=== PATIENT | female | born 1955 | race Caucasian/White ===

== ENCOUNTER 2019-01-27 14:31 | Emergency (ER) | payer OTHER ==
[~2019-01-27] VITALS: Ht 162.6 cm; Wt 97.5 kg
[~2019-01-27 14:31] MED LIST: ATIVAN0.5 MG PO; ATROVENT30 ML; AUGMENTIN 875-1 EACH PO; CLARITIN10 MG PO; FLOVENT DISKU250 MCG IH; IBUPROFEN 200200 M1 PO; KEFLEX500 MG PO; LISINOPRIL10 MG PO; PENICILLIN V P500 MG PO; PREDNISONE 5 MG5 M1 PO; PROVENTIL; SINGULAIR 10 MG10 M1 PO; ZANTAC 150MG T150 MG PO
[2019-01-27] MEDS ORDERED: INCRUSE ELLI62.5 MCG INH (14:39)
[2019-01-27] MEDS ORDERED: ADVAIR HFA 230M12 GM INH (14:39)
[2019-01-27 15:04] LABS: ABSOLUTE NEUTROPHILS 6.2 thou/uL (1.4-8.2); BASOPHILS 1.1 % (0.0-2.0); HEMATOCRIT 42.3 % (37.0-47.0); HEMOGLOBIN 14.4 gm/dL (12.0-15.0); LYMPHOCYTES 30.8 % (24.0-44.0); MCHC 33.9 g/dL (28.0-37.0); MCV 91.4 fL (80.0-100.0); MONOCYTES 7.2 % (1.0-8.0); PLATELET COUNT 317 thou/uL (150-400); POLYS 57.9 % (36.0-66.0); RBC 4.63 mil/uL (4.20-5.00); RDW 13.1 % (10.5-14.5); WBC 10.7 thou/uL (4.0-11.0)
[2019-01-27 15:15] LABS: ANION GAP 9 mmol/L (7-16); BUN 15 mg/dL (7-18); CALCIUM 9.2 mg/dL (8.5-10.1); CHLORIDE 104 mmol/L (98-107); CO2 28 mmol/L (21-32); GLUCOSE 134 mg/dL (74-106); POTASSIUM 3.9 mmol/L (3.5-5.1); SODIUM 141 mmol/L (136-145)
[2019-01-27 15:24] LABS: ALBUMIN 3.3 g/dL (3.4-5.0); SGOT 18 U/L (15-37); SGPT 32 U/L (30-65); TOTAL BILIRUBIN 0.1 mg/dL (<0.1-1.0); TOTAL PROTEIN 7.2 g/dL (6.4-8.2); TROPONIN-I <0.06 ng/mL (<0.06)
[2019-01-27] MEDS ORDERED: VIBRAMYCIN 100100 M2 PO (15:57)
[2019-01-27] MEDS ORDERED: PREDNISONE 20 M20 MG PO (15:57)
[2019-01-27 16:32] VITALS: BP 140/70
--- NOTE | 2019-01-27 18:07 | EKG ---
[address] [place] [address] ELECTROCARDIOGRAM REPORT Name: RAUL MAGDALENO [id number] ������������������ Admission: 01/27/19 ������������������ Attend Phys: Discharge: 01/27/19 ������������������ Date of : 55 Report #: [id number] ����������������������������������������������������������������� [id number] THIS REPORT FOR: //name// [facility] ED Test Date: 2019-01-27 Test Time: 14:50:04 Pat Name: RAUL MAGDALENO Department: Room: Gender: F Shank Carrier: WG : 1955 Requested By: Dasha Cardenas Order Number: [id number] MD: Jayden Dukes Measurements Intervals [place] Rate: 91 P: 44 ID: 154 QRS: 4 QRSD: 83 T: 39 QT: 363 QTc: 447 Interpretive Statements Sinus rhythm Normal tracing Compared to ECG 12/17/2012 21:11:59 No significant changes Electronically Signed On 01-27-2019 18:07:41 CDT by Jayden Dukes [email or web address] ��������������������������������������������� <ELECTRONICALLY SIGNED> ���������������������������������������� By: Jayden Dukes MD, [facility] ��������������������������������������������� 01/27/19 1807 1450 1450 Jayden Dukes MD, FACC /EPI
== END 2019-01-27 16:32 | disposition home or self-care (01) ==
LOC: ER 14:31
PROVIDERS: Nurse Practitioner Family
DX: J18.9 Pneumonia, unspecified organism (principal); J45.909 Unspecified asthma, uncomplicated; K58.9 Irritable bowel syndrome, unspecified

== ENCOUNTER 2019-06-28 12:20 | Emergency (ER) | payer OTHER ==
[~2019-06-28] VITALS: Ht 162.6 cm; Wt 94.3 kg
[~2019-06-28 12:20] MED LIST changes: +ADVAIR HFA 230M12 GM INH; +INCRUSE ELLI62.5 MCG INH; +PREDNISONE 20 M20 MG PO; +VIBRAMYCIN 100100 M2 PO
[2019-06-28] MEDS ORDERED: TRAZODONE HCL50 MG PO (12:43)
[2019-06-28 12:49] LABS: ABSOLUTE NEUTROPHILS 4.6 thou/uL (1.4-8.2); EOSINOPHILS 1.9 % (0.0-3.0); HEMATOCRIT 45.9 % (37.0-47.0); HEMOGLOBIN 15.6 gm/dL (12.0-15.0); LYMPHOCYTES 37.5 % (24.0-44.0); MCH 30.6 pg (26.0-34.0); MCHC 33.9 g/dL (28.0-37.0); MCV 90.2 fL (80.0-100.0); MONOCYTES 7.4 % (1.0-8.0); PLATELET COUNT 305 thou/uL (150-400); POLYS 52.2 % (36.0-66.0); RBC 5.09 mil/uL (4.20-5.00); RDW 12.4 % (10.5-14.5); WBC 8.8 thou/uL (4.0-11.0)
[2019-06-28 12:50] LABS: ANION GAP 9 mmol/L (7-16); BUN 11 mg/dL (7-18); CALCIUM 9.1 mg/dL (8.5-10.1); CHLORIDE 102 mmol/L (98-107); CO2 28 mmol/L (21-32); CREATININE 0.7 mg/dL (0.6-1.0); GLUCOSE 106 mg/dL (74-106); POTASSIUM 3.9 mmol/L (3.5-5.1); SODIUM 139 mmol/L (136-145)
[2019-06-28 12:59] LABS: ALBUMIN 3.7 g/dL (3.4-5.0); SGOT 23 U/L (15-37); SGPT 28 U/L (30-65); TOTAL BILIRUBIN 0.5 mg/dL (<0.1-1.0); TOTAL PROTEIN 7.8 g/dL (6.4-8.2); TROPONIN-I <0.06 ng/mL (<0.06)
[2019-06-28] MEDS ORDERED: PROTONIX40 MG PO (13:14)
[2019-06-28 13:36] VITALS: BP 116/53
--- NOTE | 2019-06-28 17:32 | EKG ---
[address] [address] ELECTROCARDIOGRAM REPORT Name: RAUL MAGDALENO Room #: DEP [facility]#: [id number] Admission: 06/28/19 Attend Phys: Discharge: 06/28/19 Date of : 55 Report #: [id number] THIS REPORT FOR: //name// [facility] ED Test Date: 2019-06-28 Test Time: 12:24:37 Pat Name: RAUL MAGDALENO Department: Room: Gender: F Bed Placement Coordinator: : 1955 Requested By: Anthony Roa Order Number: [id number] MD: Jayden Dukes Measurements Intervals [place] Rate: 86 P: 55 AR: 165 QRS: 8 QRSD: 84 T: 33 QT: 378 QTc: 452 Interpretive Statements Sinus rhythm No significant abnormality Compared to ECG 01/27/2019 14:50:04 No significant changes Electronically Signed On 06-28-2019 17:32:09 CDT by Jayden Dukes [email or web address] <ELECTRONICALLY SIGNED> By: Jayden Dukes MD, [facility] 06/28/19 1732 1224 1224 Jayden Dukes MD, FACC /EPI
== END 2019-06-28 13:20 | disposition home or self-care (01) ==
LOC: ER 12:20
PROVIDERS: Emergency Medicine
DX: R07.89 Other chest pain (principal); J45.909 Unspecified asthma, uncomplicated; K58.9 Irritable bowel syndrome, unspecified; Z87.891 Personal history of nicotine dependence; Z79.899 Other long term (current) drug therapy

== ENCOUNTER → 2019-12-14 | Outpatient (CLI) | payer OTHER ==
[~2019-12-14] MED LIST changes: +PROTONIX40 MG PO; +TRAZODONE HCL50 MG PO
== END ==
LOC: RAD 07:04
DX: J45.51 Severe persistent asthma with (acute) exacerbation (principal)

== ENCOUNTER 2020-02-14 16:51 | Emergency (ER) | payer OTHER ==
[~2020-02-14] VITALS: Ht 162.6 cm; Wt 99.8 kg
[2020-02-14 19:24] VITALS: BP 178/85
== END 2020-02-14 19:25 | disposition home or self-care (01) ==
LOC: ER 16:51
DX: R50.9 Fever, unspecified (principal); R05 Cough; R51 Headache; M79.10 Myalgia, unspecified site; R09.89 Other specified symptoms and signs involving the circulatory and respiratory systems; J45.909 Unspecified asthma, uncomplicated; F17.210 Nicotine dependence, cigarettes, uncomplicated; Z03.818 Encounter for observation for suspected exposure to other biological agents ruled out; Z79.899 Other long term (current) drug therapy

== ENCOUNTER 2020-06-28 23:38 | Inpatient (IN) | payer OTHER ==
[~2020-06-28] VITALS: Ht 162.6 cm; Wt 108.9 kg
[2020-06-28 23:42] VITALS: BP 122/105
[2020-06-29 00:31] LABS: ABSOLUTE NEUTROPHILS 16.5 thou/uL (1.4-8.2); BASOPHILS 0.2 % (0.0-2.0); HEMATOCRIT 47.8 % (37.0-47.0); HEMOGLOBIN 16.1 gm/dL (12.0-15.0); LYMPHOCYTES 6.3 % (24.0-44.0); MCHC 33.7 g/dL (28.0-37.0); MCV 91.9 fL (80.0-100.0); MONOCYTES 0.3 % (1.0-8.0); PLATELET COUNT 250 thou/uL (150-400); POLYS 93.2 % (36.0-66.0); RBC 5.21 mil/uL (4.20-5.00); RDW 13.8 % (10.5-14.5); WBC 17.7 thou/uL (4.0-11.0)
[2020-06-29 00:33] LABS: CALCIUM 9.5 mg/dL (8.5-10.1); CREATININE 1.3 mg/dL (0.6-1.0); POTASSIUM 3.7 mmol/L (3.5-5.1)
[2020-06-29 00:39] LABS: ALBUMIN 3.4 g/dL (3.4-5.0); TOTAL BILIRUBIN 0.5 mg/dL (0.2-1.0); TOTAL PROTEIN 7.3 g/dL (6.4-8.2)
[2020-06-29 01:51] LABS: URINE BLOOD NEGATIVE (Negative); URINE CLARITY CLEAR; URINE COLOR YELLOW; URINE GLUCOSE-RANDOM* TRACE (Negative); URINE KETONES 1+ (Negative); URINE LEUKOCYTES-REFLEX TRACE (Negative); URINE NITRITE-REFLEX NEGATIVE (Negative); URINE PROTEIN (DIPSTICK) 1+ (Negative); URINE SPECIFIC GRAVITY >= 1.030 (1.005-1.035); URINE UROBILINOGEN 0.2 E.U./dl (0.2-1.0)
[2020-06-29 02:00] LABS: URINE BILIRUBIN NEGATIVE (Negative)
[2020-06-29 02:01] LABS: ICTOTEST (BILI CONFIRMATORY) Negative (Negative)
[2020-06-29 02:02] LABS: CASTS None Seen /LPF (None Seen); MUCUS 4-6 Moderate strn/LPF (None Seen); SQUAMOUS 0-3 Few /LPF (0-3); URINE WBC-REFLEX 0-5 Rare /HPF (0-5)
[2020-06-29 02:03] LABS: BACTERIA-REFLEX 1-9 Few /HPF (None Seen); CRYSTALS None Seen /LPF (None Seen); URINE RBC None Seen /HPF (0-2)
[2020-06-29 05:18] VITALS: BP 103/58
[2020-06-29 05:25] VITALS: BP 103/58
--- NOTE | 2020-06-29 05:34 | NUR ---
ATTEMPTED TO CALL REPORT TO UNIT, RN IN PT ROOM
--- NOTE | 2020-06-29 08:50 | EKG ---
[facility] [address] ELECTROCARDIOGRAM REPORT Name: RAUL MAGDALENO Room #: 354-P ADM IN M.R.#: [id number] Admission: 06/29/20 Attend Phys: Howard Wiseman Discharge: Date of : 55 Report #: [id number] THIS REPORT FOR: cc: LUIS E - No family physician/PCP LUIS E - No family physician/PCP Jayden Dukes MD [facility] THIS REPORT FOR: //name// [facility] ED Test Date: 2020-06-28 Test Time: 23:57:50 Pat Name: RAUL MAGDALENO Department: Room: 354 P Gender: F Courtroom Reporter: TI : 1955 Requested By: Howard Wiseman Order Number: [id number] MD: Jayden Dukes Measurements Intervals [place] Rate: 143 P: 61 NM: 123 QRS: 24 QRSD: 79 T: 31 QT: 288 QTc: 444 Interpretive Statements Sinus tachycardia Poor R wave progression Compared to ECG 06/28/2019 12:24:37 Heart rate has increased Electronically Signed On 06-29-2020 8:50:29 CDT by Jayden Dukes [email or web address] <ELECTRONICALLY SIGNED> By: Jayden Dukes MD, [facility] 06/29/20 0850 2357 2357 Jayden Dukes MD, [facility] /EPI
[2020-06-29 09:39] VITALS: BP 127/66
[2020-06-29 15:05] VITALS: BP 141/71
--- NOTE | 2020-06-29 17:56 | NUR ---
ASSUMED PATIENT CARE AT 0700. A/O X4. AFEBRILE. NO DIARRHIA NOTED. DENIES ABD PAIN. TOLERATED FULL LIQUID, PATIENT ON SOFT DIET NOW. PROGRESSING TOWARDS POC GOALS.
--- NOTE | 2020-06-29 19:26 | NUR ---
1900 ASSUMED CARE OF PT AFTER REPORT. 191 BASELINE ASSESSMENT COMPLETED, NO COMPLAINTS AT THIS TIME, DENIES N/V/D AT THIS TOIME AWAKE ALERT AND ORIENTED.
[2020-06-29 20:04] VITALS: BP 143/76
[2020-06-30 01:13] VITALS: BP 149/62
[2020-06-30 05:27] LABS: HEMATOCRIT 42.7 % (37.0-47.0); MCH 30.5 pg (26.0-34.0); MCV 92.5 fL (80.0-100.0); RBC 4.62 mil/uL (4.20-5.00); RDW 13.9 % (10.5-14.5); WBC 24.2 thou/uL (4.0-11.0)
[2020-06-30 05:48] LABS: HEMOGLOBIN 14.1 gm/dL (12.0-15.0)
[2020-06-30 05:49] LABS: CALCIUM 9.3 mg/dL (8.5-10.1); CREATININE 0.9 mg/dL (0.6-1.0); MAGNESIUM 2.3 mg/dL (1.8-2.4); POTASSIUM 4.5 mmol/L (3.5-5.1)
[2020-06-30 15:36] VITALS: BP 143/77
--- NOTE | 2020-06-30 19:31 | NUR ---
ASSUMED PATIENT CARE AT 0700. A/O X4. PLEASANT. UP AD ALBERT. COVID PCR NEGATIVE. NO N/V. PROGRESSING TOWARDS POC GOALS.
[2020-06-30 20:49] VITALS: BP 168/85
--- NOTE | 2020-06-30 22:49 | NUR ---
1900 assumed care of pt, 1915 baseline assessment completed, see assessment pt with no complaints, 2245 report called to pedrito on 4 for pt transfer to [id number], pt belongings and meds with pt
--- NOTE | 2020-07-01 00:30 | NUR ---
Pt. transfered from to this unit accompanied by staff. She is alert and oriented. Offers no c/o shortness of air. Requesting a sleeping pill and tylenol later for a headache.
[2020-07-01 06:11] LABS: HEMATOCRIT 42.7 % (37.0-47.0); HEMOGLOBIN 13.8 gm/dL (12.0-15.0); MCH 30.1 pg (26.0-34.0); MCHC 32.3 g/dL (28.0-37.0); MCV 93.1 fL (80.0-100.0); RBC 4.59 mil/uL (4.20-5.00); RDW 14.2 % (10.5-14.5); WBC 19.5 thou/uL (4.0-11.0)
[2020-07-01 08:10] VITALS: BP 180/99
[2020-07-01 10:27] VITALS: BP 180/99
--- NOTE | 2020-07-01 14:41 | NUR ---
ASSUMED CARE OF PATIENT AT SHIFT CHANGE. ASSESSMENT CHARTED. MEDICATION GIVEN PER JAN. VSS. DENIES PAIN; VOICES ABDOMINAL DISCOMFORT. PATIENT IS A&OX4, GETS UP INDEPENDENTLY AND IS PLEASANT. FLUIDS STARTED TODAY PER ORDERS; CONTINUING ABX. FSBS HAVE BEEN HIGH R/T STEROIDS. IV SITE HAS SOME POSITIONAL LEAKS; ADDRESSED AND SECURED WITH PROTECTIVE TAPE. PATIENT VOIDS WELL AND HAS A GOOD APPETITE. GETS UP INDEPENDENTLY WITH NO ISSUES. FAMILY AT BEDSIDE. WILL CONTINUE TO MONITOR
[2020-07-01 20:54] VITALS: BP 171/103
[2020-07-02 01:15] VITALS: BP 136/64
--- NOTE | 2020-07-02 03:43 | NUR ---
patient aox4 makes needs known. no soa or distress noted this shift.patient had high blood pressure this shift. visual stylist called new order of hydralizine, patient requested for trazadone, tyl and breathing treatment, blood pressure wnl and [facility]. patient is up at sandhya. patient is calm and cooperative with meds and care. new iv on rfa. old iv inflitrated. patient denied pain or discomfort. patient in bed asleep at this time breathing regular and unlaboured.
[2020-07-02 06:04] LABS: HEMATOCRIT 40.9 % (37.0-47.0); HEMOGLOBIN 13.4 gm/dL (12.0-15.0); MCH 30.5 pg (26.0-34.0); MCHC 32.9 g/dL (28.0-37.0); MCV 92.8 fL (80.0-100.0); RBC 4.4 mil/uL (4.20-5.00); RDW 14.1 % (10.5-14.5)
[2020-07-02 06:32] LABS: CALCIUM 8.3 mg/dL (8.5-10.1); CREATININE 0.8 mg/dL (0.6-1.0); POTASSIUM 3.6 mmol/L (3.5-5.1)
[2020-07-02 08:13] VITALS: BP 163/90
[2020-07-02] MEDS ORDERED: AUGMENTIN 875-1 EACH PO ×2 (08:34→08:38)
[2020-07-02] MEDS ORDERED: PREDNISONE 5 MG5 M1 PO (08:36)
[2020-07-02 09:37] VITALS: BP 163/90
[2020-07-02 09:56] VITALS: BP 163/90
--- NOTE | 2020-07-02 14:01 | NUR ---
ASSUMED CARE OF PATIENT AT SHIFT CHANGE. ASSESSMENT CHARTED. MEDS GIVEN PER MAR. VSS. PATIENT IS A&OX4 PLEASANT AND MEDICALLY STABLE. SEEN BY THIS AM AND CLEARED FOR DISCHARGE. RECIEVING LAST DOSE OF ABX. WILL CONTINUE TO MONITOR
--- NOTE | 2020-07-02 14:06 | NUR ---
I AGREE WITH NURSING ASSESSMENT AND NURSING NOTE DONE BY RADHA/MECHANICAL SPREADER OPERATOR.
[2020-07-02 16:36] VITALS: BP 163/90
== END 2020-07-02 14:30 | disposition home or self-care (01) | DRG 871 ==
LOC: ER 23:38 → EROBS 06-29 04:18 → 3W 06-29 04:18 → 4W 06-30 23:54
PROVIDERS: Emergency Medicine; Nurse Practitioner Family; ADMIT Hospitalist; ATTEND Hospitalist
DX: A41.9 Sepsis, unspecified organism (principal); R65.21 Severe sepsis with septic shock; N17.0 Acute kidney failure with tubular necrosis; K57.32 Diverticulitis of large intestine without perforation or abscess without bleeding; Z68.41 Body mass index [BMI] 40.0-44.9, adult; K21.9 Gastro-esophageal reflux disease without esophagitis; E66.9 Obesity, unspecified; J45.50 Severe persistent asthma, uncomplicated; G47.00 Insomnia, unspecified; K58.9 Irritable bowel syndrome, unspecified; B37.9 Candidiasis, unspecified; Z20.828 Contact with and (suspected) exposure to other viral communicable diseases; Z87.891 Personal history of nicotine dependence; Z79.899 Other long term (current) drug therapy; Z79.51 Long term (current) use of inhaled steroids; Z86.010 Personal history of colon polyps; Z98.51 Tubal ligation status
CPT/HCPCS: 10047; 10779

== ENCOUNTER 2020-07-07 16:53 | Inpatient (IN) | payer OTHER ==
[~2020-07-07] VITALS: Ht 162.6 cm; Wt 98.2 kg
[2020-07-07 16:57] VITALS: BP 119/78
[2020-07-07 18:13] LABS: ABSOLUTE NEUTROPHILS 15.2 thou/uL (1.4-8.2); HEMOGLOBIN 16.3 gm/dL (12.0-15.0); LYMPHOCYTES 14.6 % (24.0-44.0); MCH 31.1 pg (26.0-34.0); MCV 91.3 fL (80.0-100.0); PLATELET COUNT 380 thou/uL (150-400); POLYS 81.4 % (36.0-66.0); RBC 5.26 mil/uL (4.20-5.00); RDW 13.9 % (10.5-14.5); WBC 18.7 thou/uL (4.0-11.0)
[2020-07-07 18:14] LABS: CALCIUM 9.6 mg/dL (8.5-10.1); CREATININE 1.2 mg/dL (0.6-1.0); POTASSIUM 4.6 mmol/L (3.5-5.1)
[2020-07-07 18:20] LABS: ALBUMIN 3.4 g/dL (3.4-5.0); TOTAL BILIRUBIN 0.4 mg/dL (0.2-1.0); TOTAL PROTEIN 7.7 g/dL (6.4-8.2)
[2020-07-07 20:42] VITALS: BP 123/66
[2020-07-07 20:49] VITALS: BP 133/80
[2020-07-07 21:00] VITALS: BP 123/105
[2020-07-08 00:12] VITALS: BP 138/42
[2020-07-08 00:54] LABS: URINE BILIRUBIN NEGATIVE (Negative); URINE BLOOD TRACE (Negative); URINE CLARITY CLEAR; URINE COLOR YELLOW; URINE GLUCOSE-RANDOM* 2+ (Negative); URINE KETONES TRACE (Negative); URINE LEUKOCYTES-REFLEX NEGATIVE (Negative); URINE NITRITE-REFLEX NEGATIVE (Negative); URINE PROTEIN (DIPSTICK) NEGATIVE (Negative); URINE SPECIFIC GRAVITY 1.025 (1.005-1.035); URINE UROBILINOGEN 0.2 E.U./dl (0.2-1.0)
[2020-07-08 03:50] VITALS: BP 140/62
[2020-07-08 05:50] LABS: HEMATOCRIT 44.6 % (37.0-47.0); MCHC 33.7 g/dL (28.0-37.0); MCV 92.3 fL (80.0-100.0); RBC 4.84 mil/uL (4.20-5.00); RDW 13.9 % (10.5-14.5); WBC 12.2 thou/uL (4.0-11.0)
[2020-07-08 05:58] LABS: CALCIUM 8.3 mg/dL (8.5-10.1); CREATININE 0.9 mg/dL (0.6-1.0); POTASSIUM 4.3 mmol/L (3.5-5.1)
[2020-07-08 09:05] VITALS: BP 144/84
--- NOTE | 2020-07-08 09:16 | HC ---
[facility] [place] [address] CONSULTATION Name: RAUL MAGDALENO Room #: 215-P ADM IN M.R.#: [id number] Admission: 07/07/20 Attend Phys: Jose Parisi MD Discharge: Date of : 55 Report #: [id number] THIS REPORT FOR: cc: FAM - No family physician/PCP LUIS E - No family physician/PCP Alon Saba MD ~ CC: [facility] physician/PCP Jose Parisi DATE OF SERVICE: 07/08/2020 INFECTIOUS DISEASE CONSULTATION ATTENDING PHYSICIAN: Dr. Parisi. REASON FOR EVALUATION: Acute diverticulitis associated sepsis. HISTORY OF PRESENT ILLNESS: Chart reviewed, patient examined. This is a 65-year-old with fairly severe asthma, is on chronic corticosteroids who actually was hospitalized earlier this month with diagnosis of acute diverticulitis. She was discharged home on Augmentin, initially did fairly well and developed some nausea, emesis, profound diarrhea as well. She returned, was found to be dehydrated. Lactic acid was elevated at 3.3. White count was elevated at 18.7. She was subsequently admitted and placed on therapy with Levaquin and metronidazole. Clinically, she is better this morning. She has some pain, although she describes it more as epigastric burning type pain. Denies any breathing difficulties. It is notable she was apparently diagnosed with UTI and pneumonia as well. She is generally lucid and animated. ALLERGIES: None known. MEDICATIONS: Include levofloxacin, loratadine, ipratropium and albuterol inhaler, pantoprazole, insulin, metronidazole, acetaminophen, trazodone, methylprednisolone 40 IV q. 8 hours. PAST MEDICAL HISTORY: Above noted corticosteroid, dependent asthma, IBS, diverticulitis, history of UTI and pneumonia. SOCIAL HISTORY: Nonsmoker. No illicit drug use. Occasional ethanol. FAMILY HISTORY: Noncontributory. REVIEW OF SYSTEMS: As above. Denies any recent fevers. Appetite has been fair. Prior to the nausea, emesis. PHYSICAL EXAMINATION: [facility] [address] [place] [address] CONSULTATION Name: RAUL MAGDALENO Room #: 215-P [facility].#: [id number] Admission: 07/07/20 Attend Phys: Jose Parisi MD Discharge: Date of : 55 Report #: [id number] GENERAL: Appears reasonably well nourished. VITAL SIGNS: Temperature 97.8, pulse 91, respirations 18, blood pressure 140/62. SKIN: Warm, dry, no rashes. HEENT: Normocephalic. Extraocular muscles intact. NECK: Supple. LUNGS: Generally clear to auscultation bilaterally. HEART: Regular. I do not appreciate a murmur. ABDOMEN: Tenderness in the upper quadrants. There are no overt peritoneal signs. GENITOURINARY AND RECTAL: Deferred. LABORATORY DATA: From this morning, sodium 134, potassium 4.3, chloride 98, bicarbonate is 26, BUN and creatinine 14 and 0.9, glucose of 302. Estimated GFR of 63. CBC: White count 12.2, H and H 15.0 and 44.6, platelets of 334. Serial lactic acid 3.3, then 1.4. ASSESSMENT AND PLAN: Acute diverticulitis with course complicated by nausea, vomiting and diarrhea after being discharged, will be concerned about possible adverse drug effect to the Augmentin. We will continue current therapy with the Levaquin and Flagyl. At this point, she is on corticosteroids, high dose, certainly at risk for additional complications. At this point, her lungs appear to be relatively stable. In the event, she has any persistence or worsening type pains or symptoms, may go ahead and repeat the imaging. We will discuss with Dr. Perez. <ELECTRONICALLY SIGNED> By: Alon Saba MD 07/08/20 0916 0758 0826 Alon Saba MD /nt
--- NOTE | 2020-07-08 12:53 | HC ---
[facility] [place] [address] CONSULTATION Name: RAUL MAGDALENO Room #: 215-P ADM IN M.R.#: [id number] Admission: 07/07/20 Attend Phys: Jose Parisi MD Discharge: Date of : 55 Report #: [id number] THIS REPORT FOR: cc: [facility] - No family physician/PCP FAM - No family physician/PCP Nelson Briones MD ~ CC: [facility] physician/PCP Alon Navas MD DATE OF SERVICE: 07/08/2020 HISTORY OF PRESENT ILLNESS: The patient is a 65-year-old female who was admitted last week for abdominal pain and diagnosed with diverticulitis. CT scan on 06/29/2020 showed diverticulitis in the upper and mid sigmoid colon, no evidence of abscess or free air was noted. Gallbladder was mildly distended. No gallbladder wall thickening was noted. The patient was treated with IV antibiotics for several days and was discharged on 07/02/2020 with oral Augmentin. At home, the patient was doing fairly well for several days, but then began having increased symptoms of abdominal pain as well as nausea and vomiting. No true fever, but she states she had a temperature of 99. She does have a history of steroid-dependent asthma. Her maintenance dose at home was 30 mg per day. She is followed by Dr. Parviz Nvaas. The patient began having increasing symptoms and therefore came to the Emergency Room yesterday. She had multiple episodes of nausea, vomiting as well as diarrhea. She denies any obvious blood in her stools. The patient has had one previous episode of diverticulitis 5 years ago, also had a colonoscopy about that time showing diverticulosis and several polyps were removed. She is currently afebrile. She has been started on IV Levaquin and Flagyl. ID has been consulted. She had a bowel movement earlier today that was loose. She states her pain is improved. She has been tolerating clear liquids and plan is to increase to full liquids for lunch today. PAST MEDICAL HISTORY: Recent diverticulitis as described above. Steroid dependent asthma, previous urinary tract infection, adrenal insufficiency, previous history of septic shock, irritable bowel syndrome. ALLERGIES: No known drug allergies. MEDICATIONS ON ADMISSION: Augmentin b.i.d., prednisone 30 mg, albuterol, Atrovent, Claritin, Advair, Incruse Ellipta, and trazodone. FAMILY HISTORY: Negative for colon cancer or inflammatory bowel disease. [address] [address] CONSULTATION Name: RAUL MAGDALENO Room #: 215-P [facility] IN [facility]#: [id number] Admission: 07/07/20 Attend Phys: Jose Parisi MD Discharge: Date of : 55 Report #: [id number] REVIEW OF SYSTEMS: As per HPI. PHYSICAL EXAMINATION: VITAL SIGNS: Temperature is 98.0, pulse 90, blood pressure 144/84, and respiratory rate is 18. GENERAL: She is alert and oriented x 3, in no acute distress. HEENT: Sclerae nonicteric. Oropharynx clear. NECK: Supple, without lymphadenopathy. CARDIOVASCULAR: Regular rate and rhythm. CHEST: Mild decreased breath sounds, no wheezing. ABDOMEN: Soft. She is mildly tender to palpation in the midepigastrium and left upper quadrant, nondistended, positive bowel sounds. EXTREMITIES: No cyanosis, clubbing or edema. LABORATORY DATA: Sodium 134, potassium 4.3, chloride 98, bicarbonate 26, BUN 14, creatinine 0.9, glucose 302. AST 21, lipase 148, total bilirubin 0.4, alkaline phosphatase 72, ALT 37, albumin 3.4. Lactic acid level 1.4. WBC today is 12.2, was 18.7 yesterday; hemoglobin 15.0; platelet count 334. ASSESSMENT AND PLAN: Diverticulitis. The patient with recent hospitalization, I suspect if this is the same episode. Agree with IV antibiotics. She is currently on Levaquin and Flagyl. ID has been consulted. We will slowly advance diet as tolerated. The patient is improving at this time. There has been no nausea or vomiting today. I explained to the patient the plan will be to proceed with colonoscopy once this episode resolves in approximately 4-6 weeks' time. If she has continued episodes of diverticulitis, may need to consider surgery. Obviously with her steroid dependency, it increases difficulty in treating diverticulitis. We will continue to monitor closely. She remains afebrile at this time. Thank you for allowing me to participate in her care. <ELECTRONICALLY SIGNED> By: Nelson Briones MD 07/08/20 1253 1139 1237 Nelson Briones MD /nt
[2020-07-08 16:40] VITALS: BP 129/80
[2020-07-08 20:11] VITALS: BP 132/54
[2020-07-09 05:58] VITALS: BP 130/77
[2020-07-09 07:45] VITALS: BP 132/71; BP 132/72
[2020-07-09] MEDS ORDERED: PROTONIX40 M4 PO (11:04)
[2020-07-09] MEDS ORDERED: CIPRO500 M1 PO (11:04)
[2020-07-09] MEDS ORDERED: PROAIR HFA8.5 GM INH (11:04)
[2020-07-09] MEDS ORDERED: METRONIDAZOLE500 M4 PO (11:04)
[2020-07-09] MEDS ORDERED: SPIRIVA18 MCG INH (11:04)
[2020-07-09] MEDS ORDERED: ACIDOPHILUS1 EAC4 PO (11:04)
[2020-07-09] MEDS ORDERED: PREDNISONE 20 M20 M1 PO (11:04)
[2020-07-09 11:20] VITALS: BP 132/72
== END 2020-07-09 12:00 | disposition home or self-care (01) | DRG 871 ==
LOC: ER 16:53 → 2N 20:12 → EROBS 20:12 → 2N 20:55
PROVIDERS: Emergency Medicine; Nurse Practitioner Family; ADMIT Hospitalist; ATTEND Hospitalist
DX: A41.9 Sepsis, unspecified organism (principal); R65.21 Severe sepsis with septic shock; J18.9 Pneumonia, unspecified organism; N17.9 Acute kidney failure, unspecified; K57.32 Diverticulitis of large intestine without perforation or abscess without bleeding; E87.1 Hypo-osmolality and hyponatremia; K58.9 Irritable bowel syndrome, unspecified; E86.1 Hypovolemia; R73.9 Hyperglycemia, unspecified; J45.909 Unspecified asthma, uncomplicated; K21.9 Gastro-esophageal reflux disease without esophagitis; E66.9 Obesity, unspecified; Z79.899 Other long term (current) drug therapy; Z87.891 Personal history of nicotine dependence; Z68.37 Body mass index [BMI] 37.0-37.9, adult
CPT/HCPCS: 10081

== ENCOUNTER 2020-08-10 06:59 | Inpatient (IN) | payer OTHER ==
[~2020-08-10] VITALS: Ht 162.6 cm; Wt 98.4 kg
[~2020-08-10 06:59] MED LIST changes: +ACIDOPHILUS1 EAC4 PO; +CIPRO500 M1 PO; +METRONIDAZOLE500 M4 PO; +PREDNISONE 20 M20 M1 PO; +PROAIR HFA8.5 GM INH; +PROTONIX40 M4 PO; +SPIRIVA18 MCG INH
[2020-08-10 07:49] LABS: CALCIUM 8.6 mg/dL (8.5-10.1); CREATININE 1.2 mg/dL (0.6-1.0); POTASSIUM 4.8 mmol/L (3.5-5.1)
[2020-08-10 07:53] LABS: ABSOLUTE NEUTROPHILS 13.3 thou/uL (1.4-8.2); BASOPHILS 0.5 % (0.0-2.0); EOSINOPHILS 0.1 % (0.0-3.0); HEMATOCRIT 47.3 % (37.0-47.0); HEMOGLOBIN 15.3 gm/dL (12.0-15.0); MCH 30.4 pg (26.0-34.0); MCHC 32.3 g/dL (28.0-37.0); MCV 94.1 fL (80.0-100.0); MONOCYTES 5.8 % (1.0-8.0); PLATELET COUNT 261 thou/uL (150-400); POLYS 76.6 % (36.0-66.0); RBC 5.03 mil/uL (4.20-5.00); RDW 14.3 % (10.5-14.5); WBC 17.3 thou/uL (4.0-11.0)
--- NOTE | 2020-08-10 07:55 | EKG ---
[facility] [place] [address] ELECTROCARDIOGRAM REPORT Name: RAUL MAGDALENO Room #: [facility]#: [id number] Admission: 08/10/20 Attend Phys: Discharge: Date of : 55 Report #: [id number] THIS REPORT FOR: cc: FAM - No family physician/PCP FAM - No family physician/PCP Jayden Dukes MD [facility] THIS REPORT FOR: //name// [facility] ED Test Date: 2020-08-10 Test Time: 07:36:51 Pat Name: RAUL MAGDALENO Department: Room: Gender: F Inspecting Machine Adjuster: : 1955 Requested By: Chrissy Cespedes Order Number: [id number] MD: Jayden Dukes Measurements Intervals [place] Rate: 121 P: 66 MN: 142 QRS: 99 QRSD: 93 T: 29 QT: 335 QTc: 476 Interpretive Statements Sinus tachycardia Cannot rule out inferior infarct, old Compared to ECG 06/28/2020 23:57:50 T wave abnormality is now present Electronically Signed On 08-10-2020 7:55:10 CDT by Jayden Dukes [email or web address] <ELECTRONICALLY SIGNED> By: Jayden Dukes MD, FACC 08/10/20 0755 0736 0736 Jayden Dukes MD, [facility] /EPI
[2020-08-10 07:58] LABS: TROPONIN-I 0.13 ng/mL (<0.06)
[2020-08-10 09:57] LABS: INR 1.1; PROTIME 10.9 Seconds (9.3-11.4)
[2020-08-10 10:22] LABS: BE(vivo) -3.8 mmol/L (-2 to +3); HCO3 19.9 mmol/L (22.0-26.0); PO2 88.6 mmHg (80.0-100.0); pH 7.399 (7.360-7.450); sO2 96.8 % (92.0-98.0)
[2020-08-10 11:41] VITALS: BP 121/78
--- NOTE | 2020-08-10 17:08 | NUR ---
PATIENT ADMITTED TO ICU AT 1145 FOR BILATERAL PE'S. PATIENT REPORTS INCREASING SHORTNESS OF BREATH OVER THE LAST MONTH. PATIENT TO ER TODAY. 83% ON ROOM AIR. PATIENT RECIEVED 2L OF FLUID IN ER. BILATERAL PE'S DISCOVERED. HEPARIN GTT INITIATED IN ED. PATIENT TO ICU FOR CLOSER MONITORING. PATIENT COVID RULE OUT.
[2020-08-10 20:00] VITALS: BP 124/88; BP 38/91
[2020-08-10 21:00] VITALS: BP 131/91
[2020-08-10 22:00] VITALS: BP 137/87
[2020-08-10 23:00] VITALS: BP 137/84
[2020-08-11] VITALS (21 sets, daily range): BP systolic 112–165; BP diastolic 68–119
[2020-08-11 03:25] LABS: HEMATOCRIT 42.6 % (37.0-47.0); HEMOGLOBIN 13.8 gm/dL (12.0-15.0); MCH 30.5 pg (26.0-34.0); MCHC 32.4 g/dL (28.0-37.0); MCV 94.1 fL (80.0-100.0); RBC 4.52 mil/uL (4.20-5.00); RDW 14.3 % (10.5-14.5); WBC 14.4 thou/uL (4.0-11.0)
[2020-08-11 03:40] LABS: ALBUMIN 2.9 g/dL (3.4-5.0); CALCIUM 7.9 mg/dL (8.5-10.1); CREATININE 0.9 mg/dL (0.6-1.0); POTASSIUM 4.4 mmol/L (3.5-5.1); TOTAL BILIRUBIN 0.3 mg/dL (0.2-1.0); TOTAL PROTEIN 6.8 g/dL (6.4-8.2)
--- NOTE | 2020-08-11 09:50 | NUR ---
ASSUMED CARE AT 0700, ASSESSMENT AND VITAL SIGNS COMPLETED PER ICU PROTOCOL. DR. SHETTY ROUNDED THIS AM, PLAN OF CARE DISCUSSED, RN WILL CONTINUE TO MONITOR.
[2020-08-12] VITALS (14 sets, daily range): BP systolic 104–149; BP diastolic 70–97
[2020-08-12 04:10] LABS: HEMATOCRIT 41.7 % (37.0-47.0); HEMOGLOBIN 13.5 gm/dL (12.0-15.0); MCH 30.7 pg (26.0-34.0); MCHC 32.4 g/dL (28.0-37.0); MCV 94.9 fL (80.0-100.0); RBC 4.39 mil/uL (4.20-5.00); RDW 14.5 % (10.5-14.5); WBC 20.1 thou/uL (4.0-11.0)
[2020-08-12 04:15] LABS: CALCIUM 8.4 mg/dL (8.5-10.1); POTASSIUM 3.8 mmol/L (3.5-5.1)
--- NOTE | 2020-08-12 05:52 | NUR ---
This RN to bedside at 1900. Pt up to commode and up in chair a lot of the shift. Pt exerted with activity, HR rises and desats to 88-91% but quickly recovers. Pt remained on 6 L HiFlow NC throughout the night. Adequate urine output. Pt still receiving fluids and remains on a heparin gtt. Very pleasent.
--- NOTE | 2020-08-12 09:30 | NUR ---
Assumed care at 0700, assessment and vital signs complete per ICU protocol. Dr. Cartagena called and discussed plan of care, okay to transfer to Tele. RN will continue to monitor.
--- NOTE | 2020-08-12 11:15 | 2DMMODE ---
[facility] [place] [address] 2 D/M-MODE ECHOCARDIOGRAM Name: RAUL MAGDALENO Room #: 245-P ADM IN M.R.#: [id number] Admission: 08/10/20 Attend Phys: Michael Moyer MD Discharge: Date of : 55 Report #: [id number] THIS REPORT FOR: cc: LUIS E Addison family physician/PCP LUIS E - Cyn family physician/PCP Daniel Trammell MD [facility] ~ APPROVED REPORT Study performed: 08/11/2020 07:59:54 EXAM: Comprehensive 2D, Doppler, and color-flow Echocardiogram Patient Location: ICU Room #: 245 Status: routine BSA: 2.02 HR: 103 bpm BP: 126/85 mmHg Rhythm: Tachycardia Other Information Study Quality: Adequate Indications Bilateral PEs 2D Dimensions RVDd: 37.23 mm IVSd: 10.94 (7-11mm) LVOT Diam: 18.35 (18-24mm) LVDd: 37.18 mm PWd: 12.03 (7-11mm) Ascending Ao: 24.62 (22-36mm) LVDs: 25.07 (25-40mm) Aortic Root: 21.42 mm IVC: 24.00 mm Volumes Left Atrial Volume (Systole) Single Plane 4CH: 18.35 mL Single Plane 2CH: 28.06 mL LA ESV Index: 12.00 mL/m2 Aortic Valve AoV Peak Etienne.: 1.30 m/s AO Peak Gr.: 6.77 mmHg LVOT Max P.50 mmHg LVOT Max V: 1.06 m/s ENEDINA Vmax: 2.15 cm2 [facility] [address] [place] [address] 2 D/M-MODE ECHOCARDIOGRAM Name: RASTARAUL PARIS Room #: 245-P [facility] ..#: [id number] Admission: 08/10/20 Attend Phys: Michael Moyer MD Discharge: Date of : 55 Report #: [id number] Mitral Valve E/A Ratio: 0.7 MV Decel. Time: 124.82 ms MV E Max Etienne.: 0.50 m/s MV A Etienne.: 0.75 m/s MV PHT: 36.20 ms IVRT: 134.95 ms Pulmonary Valve PV Peak Etienne.: 0.57 m/s PV Peak Gr.: 1.30 mmHg Tricuspid Valve TR Peak Etienne.: 3.25 m/s RAP Estimate: 15.00 mmHg TR Peak Gr.: 42.22 mmHg PA Pressure: 57.00 mmHg Left Ventricle The left ventricle is normal size. There is normal LV segmental wall motion. Mild concentric left ventricular hypertrophy. The left ventricular systolic function is normal. The left ventricular ejection fraction is within the normal range. LVEF is 60%. Transmitral Doppler flow pattern suggests mild impaired LV relaxation. Right Ventricle Right ventricle is at the upper limits of normal. The right ventricular systolic function is normal. Atria The left atrium size is normal. Right atrium is mildly dilated. Aortic Valve The aortic valve is normal in structure. No aortic regurgitation is present. There is no aortic valvular stenosis. Mitral Valve The mitral valve is normal in structure. There is no mitral valve regurgitation noted. No evidence of mitral valve stenosis. Tricuspid Valve The tricuspid valve is normal in structure. Moderate tricuspid regurgitation. PAP is estimated at 57 mmHg. Pulmonic Valve The pulmonary valve is normal in structure. Mild pulmonic [facility] [address] [place] [address] 2 D/M-MODE ECHOCARDIOGRAM Name: RAUL MAGDALENO Room #: 245-P ADM IN M.R.#: [id number] Admission: 08/10/20 Attend Phys: Michael Moyer MD Discharge: Date of : 55 Report #: [id number] regurgitation. Great Vessels The aortic root is normal in size. IVC is dilated and collapses <50% with inspiration. Pericardium There is no pericardial effusion. <Conclusion> Normal left ventricular size with mild concentric hypertrophy, ejection fraction of 60%, no evidence of segmental wall motion abnormality Right ventricular size in the upper limits of normal Mild right atrial enlargement Mild tricuspid valve insufficiency Pulmonary artery systolic pressure estimated at 57 mmHg Negative for pericardial effusion <ELECTRONICALLY SIGNED> By: Daniel Trammell MD, FACC [id number] 14 Daniel Trammell MD, FAC /INF
--- NOTE | 2020-08-12 18:36 | NUR ---
PT CARE ASSUMED APPROX 1130. ASSESSMENTS CHARTED. MEDICATION CHARTED. HEPARIN GTT; 16.25 U/KG/HR; DISCONTINUED. XARELTO ADMINISTERED. RFA AND LAC IV. CC DIET; ACHS. AO X 4. SINUS TACHYCARDIA. USES BSC.
[2020-08-13 04:09] VITALS: BP 117/81
--- NOTE | 2020-08-13 04:33 | NUR ---
pt stated she had a very restful sleep thru the noc, vss hr increases with activity, voiding per bsc, no c/o pain, will con't to monitor per ppoc.
[2020-08-13 07:40] LABS: HEMATOCRIT 42.3 % (37.0-47.0); HEMOGLOBIN 13.6 gm/dL (12.0-15.0); MCH 30.5 pg (26.0-34.0); MCHC 32.1 g/dL (28.0-37.0); MCV 95.2 fL (80.0-100.0); RBC 4.45 mil/uL (4.20-5.00); RDW 14.6 % (10.5-14.5); WBC 12.8 thou/uL (4.0-11.0)
[2020-08-13 08:20] VITALS: BP 133/77
[2020-08-13 11:20] VITALS: BP 149/54
[2020-08-13 16:00] VITALS: BP 140/95
[2020-08-13 19:41] VITALS: BP 123/83
[2020-08-14] VITALS (9 sets, daily range): BP systolic 114–145; BP diastolic 82–90
--- NOTE | 2020-08-14 07:54 | NUR ---
ASSUMED CARE OF PATIENT AT 1900; VSS/SR ON MONITOR; NO DISTRESS NOTED; PT ON 3L NC W/MILD SOB ON EXERTION; ASSESSMENTS CHARTED; PLAN IS FOR PT TO CONTINUE W/ANTICOAGULATION THERAPY; WILL CONTINUE TO MONITOR AND FOLLOW WITH POC.
[2020-08-14] MEDS ORDERED: XARELTO20 MG PO (11:58)
[2020-08-14] MEDS ORDERED: ACETAMINOPHEN325 M1 PO (11:58)
[2020-08-14] MEDS ORDERED: XARELTO15 MG PO (11:58)
[2020-08-14] MEDS ORDERED: DEEP SEA NASAL44 M1 NASAL (11:58)
[2020-08-14] MEDS ORDERED: PREDNISONE 20 M20 M1 PO (11:58)
--- NOTE | 2020-08-14 16:50 | NUR ---
PT DISCHARGING TO HOME WITH HH PT HAS [facility]. FAXED REFERRAL AND DC ORDERS TO [facility] TO GET AUTH SPOKE WITH HANNAH IN INTAKE SHE GAVE AUTH #[id number] FAXED REFERRAL TO [facility] HH SPOKE WITH BERNIE IN INTAKE SHE RECEIVED REFERRAL AND SHE HAS AUTH # SHE CAN ACCEPT FOR HH AND WILL SUBMIT TO [facility] ALSO. THEY WILL NOTIFY PT AND SET UP VISITS.
--- NOTE | 2020-08-14 17:42 | NUR ---
ASSUMED CARE PT SHIFT CHANGE. ASSESSMENTS CHARTED.MEDS GIVEN PER JAN. PT ALERT AND ORIENTED.VSS. O2 SATS WNL ON 2L. C/O SOB WITH ACTIVITY. DC ORDERS ACKNOWLEDGED AND IMPLEMENTED. DISCUSSED WITH PT HOME HEALTH ORDERS AND OXYGEN. COMMUNICATES UNDERSTANDING. PT LEFT UNIT WITH ALL BELONGINGS AND WITH O2 TANK FROM [employer].
--- NOTE | 2020-08-14 18:10 | NUR ---
Patient to nm home today with orders for home health care and home oxygen. Referral to [facility] [place] for home oxygen. they received and set up for home. Patient with no preference for DME or HH. Faxed referral to [facility] who could not staff. Referral to [facility] who was accepting. Start of care and patient in agreement. Sp throughout the day to Carina at [facility] who assisted in coordinating. No further needs.
== END 2020-08-14 17:44 | disposition home health service (06) | DRG 175 ==
LOC: ER 06:59 → EROBS 10:58 → 2N 10:58 → ICU 10:58 → 2N 08-12 11:53
PROVIDERS: Emergency Medicine; Internal Medicine Pulmonary Disease; ADMIT Hospitalist; ATTEND Hospitalist
DX: I26.92 Saddle embolus of pulmonary artery without acute cor pulmonale (principal); J96.01 Acute respiratory failure with hypoxia; I82.452 Acute embolism and thrombosis of left peroneal vein; E87.2 Acidosis; E27.3 Drug-induced adrenocortical insufficiency; R77.8 Other specified abnormalities of plasma proteins; E66.01 Morbid (severe) obesity due to excess calories; E16.2 Hypoglycemia, unspecified; J45.50 Severe persistent asthma, uncomplicated; K58.9 Irritable bowel syndrome, unspecified; I10 Essential (primary) hypertension; Z20.828 Contact with and (suspected) exposure to other viral communicable diseases; Z87.891 Personal history of nicotine dependence; Z79.899 Other long term (current) drug therapy; Z68.37 Body mass index [BMI] 37.0-37.9, adult
CPT/HCPCS: 10078; 10081

== ENCOUNTER → 2020-08-20 | Outpatient (CLI) | payer OTHER ==
[~2020-08-20] MED LIST changes: +ACETAMINOPHEN325 M1 PO; +DEEP SEA NASAL44 M1 NASAL; +XARELTO15 MG PO; +XARELTO20 MG PO
== END ==
LOC: RAD 08:24
PROVIDERS: ATTEND Internal Medicine
DX: J45.50 Severe persistent asthma, uncomplicated (principal)

== ENCOUNTER → 2020-10-15 | Outpatient (CLI) | payer OTHER ==
--- NOTE | 2020-10-15 11:50 | 2DMMODE ---
[facility] [place] [address] 2 D/M-MODE ECHOCARDIOGRAM Name: RAUL MAGDALENON Room #: REG [facility]#: [id number] Admission: 10/15/20 Attend Phys: Parviz Navas MD Discharge: Date of : 55 Report #: [id number] THIS REPORT FOR: cc: LUIS E - Cyn family physician/PCP LUIS E - No family physician/PCP Daniel Trammell MD [facility] ~ APPROVED REPORT Study performed: 10/15/2020 11:08:22 EXAM: Comprehensive 2D, Doppler, and color-flow Echocardiogram Patient Location: Out-Patient Room #: 2 Status: routine BSA: 2.02 HR: 102 bpm BP: 126/84 mmHg Rhythm: Tachycardia Other Information Study Quality: Good Indications Pulmonary Embolism Dyspnea 2D Dimensions RVDd: 31.80 mm IVSd: 9.78 (7-11mm) LVOT Diam: 18.18 (18-24mm) LVDd: 44.00 mm PWd: 10.53 (7-11mm) Ascending Ao: 23.03 (22-36mm) LVDs: 31.44 (25-40mm) Aortic Root: 26.73 mm IVC: 14.00 mm Volumes Left Atrial Volume (Systole) Single Plane 4CH: 30.65 mL Single Plane 2CH: 23.50 mL LA ESV Index: 15.00 mL/m2 Aortic Valve AoV Peak Etienne.: 1.88 m/s AO Peak Gr.: 14.16 mmHg LVOT Max P.70 mmHg LVOT Max V: 0.96 m/s ENEDINA Vmax: 1.33 cm2 [facility] [address] [place] [address] 2 D/M-MODE ECHOCARDIOGRAM Name: RAUL MAGDALENO Room #: REG CL [facility]#: [id number] Admission: 10/15/20 Attend Phys: Parviz Navas, Discharge: Date of : 55 Report #: [id number] Mitral Valve E/A Ratio: 0.8 MV Decel. Time: 252.40 ms MV E Max Etienne.: 0.82 m/s MV A Etienne.: 1.06 m/s MV PHT: 73.20 ms IVRT: 110.73 ms Pulmonary Valve PV Peak Etienne.: 1.30 m/s PV Peak Gr.: 6.78 mmHg Pulmonary Vein P Vein S: 0.36 m/s P Vein A: 0.28 m/s P Vein D: 0.24 m/s P Vein A Dur.: 120.0 msec P Vein S/D Ratio: 1.50 Left Ventricle The left ventricle is normal size. There is normal LV segmental wall motion. There is normal left ventricular wall thickness. Left ventricular systolic function is normal. The left ventricular ejection fraction is within the normal range. LVEF is 55-60%. Grade I - abnormal relaxation pattern. Right Ventricle The right ventricle is normal size. The right ventricular systolic function is normal. Atria The left atrium size is normal. The right atrium size is normal. Aortic Valve The aortic valve is normal in structure. No aortic regurgitation is present. There is no aortic valvular stenosis. Mitral Valve The mitral valve is normal in structure. Trace mitral regurgitation. No evidence of mitral valve stenosis. Tricuspid Valve The tricuspid valve is normal in structure. There is no tricuspid valve regurgitation noted. Pulmonic Valve The pulmonary valve is normal in structure. There is no pulmonic [facility] [place] [address] 2 D/M-MODE ECHOCARDIOGRAM Name: RAUL MAGDALENO Room #: REG [facility]#: [id number] Admission: 10/15/20 Attend Phys: Parviz Navas, Discharge: Date of : 55 Report #: [id number] valvular regurgitation. Great Vessels The aortic root is normal in size. IVC is normal in size and collapses >50% with inspiration. Pericardium There is no pericardial effusion. <Conclusion> Normal left ventricle size and wall thickness Preserved ejection fraction of 60% Grade 1 diastolic function Normal atrial size Normal right ventricular size and function Normal aortic/mitral valve structure and function No pericardial effusion <ELECTRONICALLY SIGNED> By: Daniel Trammell MD, FACC 10/15/20 1150 1150 1150 Daniel Trammell MD, FACC /INF
== END ==
LOC: CV 10:57
PROVIDERS: ATTEND Internal Medicine
DX: R06.00 Dyspnea, unspecified (principal)

== ENCOUNTER 2020-12-06 14:44 | Emergency (ER) | payer OTHER ==
[~2020-12-06] VITALS: Ht 162.6 cm; Wt 93.0 kg
[2020-12-06] MEDS ORDERED: HYDROCODON-ACE1 EAC7 PO (16:53)
[2020-12-06 17:05] VITALS: BP 166/135
== END 2020-12-06 17:05 | disposition home or self-care (01) ==
LOC: ER 14:44
DX: S22.079A Unspecified fracture of T9-T10 vertebra, initial encounter for closed fracture (principal); J45.909 Unspecified asthma, uncomplicated; Z86.711 Personal history of pulmonary embolism; Z79.899 Other long term (current) drug therapy; Z87.891 Personal history of nicotine dependence; X50.1XXA Overexertion from prolonged static or awkward postures, initial encounter; Y93.56 Activity, jumping rope; Y92.89 Other specified places as the place of occurrence of the external cause; Y99.8 Other external cause status